=== PATIENT | female | born 1945 | race Caucasian/White ===

== ENCOUNTER 2023-07-20 08:30 | Inpatient (IN) ==
[~2023-07-20 08:30] MED LIST: Buffered Lidocaine 1% SYRIN 1 ml INTRADERM ONE; Famotidine IV 10 MG/ML 2 ml VIAL (20 mg) IV ONE; Lactated Ringers 1000 ml BAG 1,000 ML IV SCH; ROPIVACAINE 5 MG/ML 30 ML BTL (0.5%) ONE
[2023-07-20] MEDS ORDERED: ROPIVACAINE 5 MG/ML 30 ML BTL (0.5%) ONE (08:58)
[2023-07-20] MEDS ORDERED: Lidocaine 2% PF 5 ML VIAL ONE (09:01)
[2023-07-20] MEDS ORDERED: Midazolam 2 mg/2 ml VIAL 1 mg/ml 2 ml VIAL (2 mg) ONE (09:01)
[2023-07-20] MEDS ORDERED: Propofol 10 MG/ML 20 ML BTL ONE (09:01)
[2023-07-20] MEDS ORDERED: fentaNYL 100 mcg/2 ml 50 MCG/ML VIAL ONE (09:01)
[2023-07-20] MEDS ORDERED: Phenylephrine IV 10 MG/ML 1 ml VIAL ONE (09:01)
[2023-07-20] MEDS ORDERED: ceFAZolin 2 GM PREMIX 2 GM/50 ML BAG ONE (09:02)
[2023-07-20] MEDS ORDERED: Tranexamic Acid 1 GM/100ML BAG 2,000 MG/200 ML BAG IV ONE (09:02)
[2023-07-20] MEDS ORDERED: Famotidine IV 10 MG/ML 2 ml VIAL (20 mg) ONE (09:03)
[2023-07-20] MEDS ORDERED: Buffered Lidocaine 1% SYRIN 1 ml ONE (09:03)
[2023-07-20 09:14] LABS: Rapid COVID-19 Molecular Undetected (Undetected)
[2023-07-20] MEDS ORDERED: HYDROmorphone 0.5 MG/0.5 ML SYRINGE ONE ×3 (10:11→10:50)
[2023-07-20] MEDS ORDERED: Naloxone 0.4 mg VIAL 0.4 mg/ml 1 ml VIAL IV PRN (10:22)
[2023-07-20] MEDS ORDERED: fentaNYL 100 mcg/2 ml 50 MCG/ML VIAL IV PRN (10:22)
[2023-07-20] MEDS ORDERED: HYDROmorphone 1 MG/1 ML SYRINGE IV PRN (10:22)
[2023-07-20] MEDS ORDERED: Ondansetron 4 mg VIAL 2 MG/ML 2 ml VIAL ONE (10:26)
[2023-07-20] MEDS ORDERED: Dexamethasone IV 4 MG/ML VIAL 1 ml VIAL ONE (10:26)
[2023-07-20] MEDS ORDERED: Acetaminophen IV 1 GM/100ML 1,000 MG/100 ML BAG IV ONE (10:28)
[2023-07-20] MEDS ORDERED: Magnesium Hydroxide LIQ 30 ML UDC PO PRN (12:27)
[2023-07-20] MEDS ORDERED: Ondansetron 4 mg VIAL 2 MG/ML 2 ml VIAL IV PRN (12:27)
[2023-07-20] MEDS ORDERED: Morphine 2 MG/ML SYRINGE IV PRN (12:27)
[2023-07-20] MEDS ORDERED: Lactulose 30 ml UDC PO PRN (12:27)
[2023-07-20] MEDS ORDERED: Ondansetron ODT 4 mg TAB 4 MG TAB PO PRN (12:27)
[2023-07-20] MEDS: Lactated Ringers 1000 ml BAG 1,000 ML IV SCH (14:27)
[2023-07-20] MEDS: ceFAZolin 1 GM ADVAN 1 GM in NS 0.9% 50 ML 50 ML IVPB SCH (18:39)
[2023-07-20] MEDS: Magnesium Hydroxide LIQ 30 ML UDC PO SCH (20:27)
[2023-07-21] MEDS: ceFAZolin 1 GM ADVAN 1 GM in NS 0.9% 50 ML 50 ML IVPB SCH ×2 (02:07→10:09)
[2023-07-21] MEDS: Lactated Ringers 1000 ml BAG 1,000 ML IV SCH (02:13)
[2023-07-21] MEDS: Magnesium Hydroxide LIQ 30 ML UDC PO SCH (07:43)
[2023-07-21 07:56] LABS: Hematocrit 34.7 % (35-45); Hemoglobin 11.7 g/dL (11.5-14.3); Mean Corpuscular Hemoglobin 32.4 pg (27-33); Mean Corpuscular Hgb Conc 33.7 g/dL (31-36); Mean Corpuscular Volume 96.2 fL (80-97); Mean Platelet Volume 7.7 fL (7.5-11.2); Platelet Count 261 10^3/uL (150-450); Red Blood Count 3.61 10^6/uL (3.63-4.92); Red Cell Distribution Width 12.3 % (12-17); White Blood Count 14.3 10^3/uL (3.8-11.8)
[2023-07-21 08:15] LABS: Calcium 8.8 mg/dL (8.6-10.3); Creatinine, Serum 0.95 mg/dL (0.51-0.95); Magnesium 1.8 mg/dL (1.9-2.7); Potassium 4.7 mmol/L (3.5-5.0); eGFR CKD-EPI 62.1 (>60)
[2023-07-21] MEDS ORDERED: Vitamin THERAPEUTIC TAB PO SCH (09:00)
[2023-07-21] MEDS ORDERED: Cholecalciferol (VIT D3) 1,000 unit TAB PO SCH (09:00)
[2023-07-21] MEDS ORDERED: Magnesium Sulfate IV 1GM/100ML 1 GM/100 ML BAG IV ONE (10:30)
[2023-07-21 10:46] VITALS: BP 115/62
== END 2023-07-21 14:00 | disposition home or self-care (01) | DRG 470 ==
LOC: AA 08:30 → SSU 12:27
PROVIDERS: ADMIT Orthopaedic Surgery Adult Reconstructive Orthopaedic Surgery; ATTEND Orthopaedic Surgery Adult Reconstructive Orthopaedic Surgery